=== PATIENT | female | born 2000 | race Hispanic/Latino ===

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

== ENCOUNTER 2020-09-29 15:53 | Emergency (ER) | payer OTHER, SELFPAY ==
[2020-09-29 17:28] LABS: SARS-COV-2 RT PCR NEGATIVE (NEGATIVE)
[2020-09-29] MEDS ORDERED: ONDANSETRON 4 MG (ODT) TAB ONE (17:32)
--- NOTE | 2020-09-29 18:22 | RAD REPORT ---
EXAM DESCRIPTION: RAD - Chest Single View - 09/29/2020 6:17 pm CLINICAL HISTORY: COUGH Chest pain. COMPARISON: ABDOMEN 1 VIEW KUB dated 12/06/2015; CHEST SINGLE VIEW dated 11/30/2015 FINDINGS: Portable technique limits examination quality. Subtle mild interstitial lung opacities bilaterally could indicate a viral bronchitis. The heart is n ormal in size. No displaced fractures.
--- NOTE | 2020-09-29 18:25 | EDPHYS ---
Physician Documentation [facility] Name: Ariadna Castle Age: 20 yrs Sex: Female : 2000 Arrival Date: 09/29/2020 Time: 15:56 Bed 25 Private MD: ED Physician Ashwin Weber HPI: 09/29 17:35 This 20 yrs old Female presents to ER via Ambulatory with complaints of kb Chills, Vomiting. 17:35 The patient or guardian reports cough, flu symptoms, low-grade fever, myalgias. Onset: kb The symptoms/episode began/occurred last night. Severity of symptoms: At their worst the symptoms were moderate, in the emergency department the symptoms are unchanged. Modifying factors: The symptoms are alleviated by nothing, the symptoms are aggravated by nothing. Associated signs and symptoms: Pertinent positives: nausea, rhinorrhea. The patient has not experienced similar symptoms in the past. The patient has not recently seen a physician. Pt reports nausea, bodyaches, chills, sinus congestion, rhinorrhea, fatigue and malaise since last night. Historical: - Allergies: 16:09 No Known Allergies; ll1 - PMHx: 16:09 mono; herniated disc; ll1 - PSHx: 16:09 None; ll1 - Immunization history:: Flu vaccine is not up to date. - Social history:: Smoking status: Patient denies any tobacco usage or history of. ROS: 17:32 Cardiovascular: Negative for chest pain, palpitations, and edema, Back: Negative for kb injury and pain, MS/Extremity: Negative for injury and deformity, Skin: Negative for injury, rash, and discoloration, Neuro: Negative for headache, weakness, numbness, tingling, and seizure. 17:32 Constitutional: Positive for body aches, chills, fatigue, fever, malaise. 17:32 ENT: Positive for rhinorrhea, sinus congestion. 17:32 Respiratory: Positive for cough, Negative for dyspnea on exertion, hemoptysis, orthopnea, pleurisy, shortness of breath, sputum production, wheezing. 17:32 Abdomen/GI: Positive for nausea. Exam: 17:33 Constitutional: This is a well developed, well nourished patient who is awake, alert, kb and in no acute distress. Head/Face: Normocephalic, atraumatic. Chest/axilla: Normal chest wall appearance and motion. Nontender with no deformity. No lesions are appreciated. Cardiovascular: Regular rate and rhythm with a normal S1 and S2. No gallops, murmurs, or rubs. Normal PMI, no JVD. No pulse deficits. Respiratory: Lungs have equal breath sounds bilaterally, clear to auscultation and percussion. No rales, rhonchi or wheezes noted. No increased work of breathing, no retractions or nasal flaring. Abdomen/GI: Soft, non-tender, with normal bowel sounds. No distension or tympany. No guarding or rebound. No evidence of tenderness throughout. Back: No spinal tenderness. No costovertebral tenderness. Full range of motion. Skin: Warm, dry with normal turgor. Normal color with no rashes, no lesions, and no evidence of cellulitis. MS/ Extremity: Pulses equal, no cyanosis. Neurovascular intact. Full, normal range of motion. Neuro: Awake and alert, GCS 15, oriented to person, place, time, and situation. Cranial nerves II-XII grossly intact. Motor strength 5/5 in all extremities. Sensory grossly intact. Cerebellar exam normal. Normal gait. Vital Signs: 16:05 BP 126 / 73; Pulse 72; Resp 16; Temp 98.1; Pulse Ox 100% on R/A; Weight 115.67 kg (M); ll1 Height 5 ft. 4 in. (162.56 cm); Pain 8/10; 18:30 BP 118 / 76; Pulse 68; Resp 18; Pulse Ox 99% on R/A; em 16:05 Body Mass Index 43.77 (115.67 kg, 162.56 cm) ll1 MDM: 17:01 Patient medically screened. kb 17:33 Data reviewed: vital signs, nurses notes. Data interpreted: Pulse oximetry: on room air kb is 100 %. Interpretation: normal. Counseling: I had a detailed discussion with the patient and/or guardian regarding: the historical points, exam findings, and any diagnostic results supporting the discharge/admit diagnosis, lab results, the need for outpatient follow up, a family practitioner, to return to the emergency department if symptoms worsen or persist or if there are any questions or concerns that arise at home. 09/29 17:28 Order name: COVID-19/FLU A+B; Complete Time: 17:31 EDMN 09/29 17:33 Order name: Chest Single View XRAY; Complete Time: 18:23 kb Administered Medications: 17:19 Drug: Zofran (Ondansetron) 4 mg Route: PO; em 18:00 Follow up: Response: No adverse reaction; Marked relief of symptoms; Nausea is decreasedem 18:37 Drug: predniSONE 40 mg Route: PO; em 18:41 Follow up: Response: Medication administered at discharge. em Disposition: 09/30 14:25 Co-signature as Attending Physician, Ashwin Weber MD I agree with the assessment and kdr plan of care. Disposition: 09/29/20 18:24 Discharged to Home. Impression: Acute bronchitis. - Condition is Stable. - Discharge Instructions: Acute Bronchitis, [id number]. - Prescriptions for Prednisone 20 mg Oral Tablet - take 1 tablet by ORAL route once daily for 5 days; 5 tablet. Albuterol Sulfate 90 mcg/actuation - inhale 1-2 puff by INHALATION route every 4-6 hours; 1 Inhaler. - Medication Reconciliation Form, Thank You Letter, Antibiotic Education, Prescription Opioid Use form. - Follow up: Emergency Department; When: As needed; Reason: Worsening of condition. Follow up: Private Physician; When: 2 - 3 days; Reason: Recheck today's complaints, Continuance of care, Re-evaluation by your physician. Signatures: Dispatcher [employer] [facility] Jaymie Cao, DIRECTOR OF PRODUCT MANAGEMENT-C DIRECTOR OF PRODUCT MANAGEMENT-Ashwin Navarrete MD MD [facility] Tello Villanueva RN RN Bee Mirza RN RN ll1 Corrections: (The following items were deleted from the chart) 09/29 16:42 16:10 Influenza Screen (A \T\ B)+BA.LAB.BRZ ordered. [facility] EDMN 16:42 16:10 CORONAVIRUS+MR.LAB.BRZ ordered. [facility] 18:45 18:24 09/29/2020 18:24 Discharged to Home. Impression: Acute bronchitis. Condition is em Stable. Forms are Medication Reconciliation Form, Thank You Letter, Antibiotic Education, Prescription Opioid Use. Follow up: Emergency Department; When: As needed; Reason: Worsening of condition. Follow up: Private Physician; When: 2 - 3 days; Reason: Recheck today's complaints, Continuance of care, Re-evaluation by your physician. kb
--- NOTE | 2020-09-29 18:25 | ER ---
Nurse's Notes [facility] Name: Ariadna Castel Age: 20 yrs Sex: Female : 2000 Arrival Date: 09/29/2020 Time: 15:56 Bed 25 Private MD: Diagnosis: Acute bronchitis Presentation: 09/29 16:05 Chief complaint: Patient states: Cough, CORDON, fatigue, sore throat N/V for 2 days. Fever ll1 99 when walking in today. Coronavirus screen: Client denies travel out of the [place] in the last 14 days. chills, congestion, cough unrelated to allergies, difficulty breathing, fatigue, fever, headache, muscle pain, nausea, shaking with chills, sore throat, vomiting. Client presents with at least one sign or symptom that may indicate coronavirus-19. Standard/surgical mask placed on the client. Ebola Screen: Patient denies travel to an Ebola-affected area in the 21 days before illness onset. Initial Sepsis Screen: Does the patient meet any 2 criteria? No. Patient's initial sepsis screen is negative. Does the patient have a suspected source of infection? Yes: Productive cough/pneumonia. Risk Assessment: Do you want to hurt yourself or someone else? Patient reports no desire to harm self or others. Onset of symptoms was September 28, 2020. 16:05 Method Of Arrival: Ambulatory ll1 16:05 Acuity: MICHAEL 3 ll1 Triage Assessment: 16:10 General: Appears uncomfortable, Behavior is calm, cooperative, appropriate for age. ll1 Pain: Complains of pain in head Pain currently is 8 out of 10 on a pain scale. Pain began 2-3 days ago. EENT: Reports nasal congestion. Neuro: No deficits noted. Cardiovascular: No deficits noted. Respiratory: Reports cough that is. GI:. GI: Abdomen is flat, Bowel sounds present X 4 quads. Abd is soft and non tender X 4 quads. Reports nausea, vomiting. Historical: - Allergies: 16:09 No Known Allergies; ll1 - PMHx: 16:09 mono; herniated disc; ll1 - PSHx: 16:09 None; ll1 - Immunization history:: Flu vaccine is not up to date. - Social history:: Smoking status: Patient denies any tobacco usage or history of. Screenin:07 Abuse screen: Denies threats or abuse. Nutritional screening: No deficits noted. em Tuberculosis screening: No symptoms or risk factors identified. Fall Risk None identified. Assessment: 17:10 General: Appears in no apparent distress. uncomfortable, Behavior is calm, cooperative, em appropriate for age, Reports chills for 12-24 hours, fever for 12-24 hours, feeling ill for 12-24 hours. Pain: Complains of pain in "body aches" Pain does not radiate. Pain currently is 8 out of 10 on a pain scale. Neuro: Level of Consciousness is awake, alert, obeys commands, Oriented to person, place, time, situation, Appropriate for age. Cardiovascular: Capillary refill < 3 seconds Patient's skin is warm and dry. Respiratory: Airway is patent Respiratory effort is even, unlabored, Respiratory pattern is regular, symmetrical. GI: Abdomen is round non-distended, Reports nausea, Patient currently denies diarrhea, vomiting. EENT: Oral mucosa is moist. Derm: Musculoskeletal: Capillary refill < 3 seconds, Range of motion: intact in all extremities. 18:30 Reassessment: Patient appears in no apparent distress at this time. Patient and/or em family updated on plan of care and expected duration. Pain level reassessed. Patient is alert, oriented x 3, equal unlabored respirations, skin warm/dry/pink. Vital Signs: 16:05 BP 126 / 73; Pulse 72; Resp 16; Temp 98.1; Pulse Ox 100% on R/A; Weight 115.67 kg (M); ll1 Height 5 ft. 4 in. (162.56 cm); Pain 8/10; 18:30 BP 118 / 76; Pulse 68; Resp 18; Pulse Ox 99% on R/A; em 16:05 Body Mass Index 43.77 (115.67 kg, 162.56 cm) ll1 ED Course: 15:56 Patient arrived in ED. ds1 16:02 Jaymie Ca[facility] FNP-C [facility]. kb 16:02 Ashwin Weber MD is Attending Physician. kb 16:05 Arm band placed on. ll1 16:09 Triage completed. ll1 17:04 Tello Villanueva, LEDY is Primary Nurse. em 17:07 Patient has correct armband on for positive identification. Bed in low position. Call em light in reach. Side rails up X2. 17:40 Urine collected: clean catch specimen, cloudy, blood tinged. em 18:18 Chest Single View XRAY In Process Unspecified. EDMS 18:41 No provider procedures requiring assistance completed. Patient did not have IV access em during this emergency room visit. Administered Medications: 17:19 Drug: Zofran (Ondansetron) 4 mg Route: PO; em 18:00 Follow up: Response: No adverse reaction; Marked relief of symptoms; Nausea is decreasedem 18:37 Drug: predniSONE 40 mg Route: PO; em 18:41 Follow up: Response: Medication administered at discharge. em Outcome: 18:24 Discharge ordered by MD. kb 18:42 Discharged to home ambulatory. em 18:42 Condition: stable 18:42 Discharge instructions given to patient, Instructed on discharge instructions, follow up and referral plans. medication usage, Demonstrated understanding of instructions, follow-up care, medications, Prescriptions given X 2. 18:45 Patient left the ED. em Signatures: Dispatcher [employer] EDMS Jaymie Cao, GRAVITY METER OBSERVER-C GRAVITY METER OBSERVER-Tello Carreno, RN RN Mariai Avila ds1 Bee Mirza, RN RN ll1
[2020-09-29 18:49] VITALS: TEMP 98.1
[2020-09-29] MEDS ORDERED: predniSONE 20 MG TAB ONE (18:49)
[2020-09-29 18:50] VITALS: BP 118/76; O2SAT 99
== END 2020-09-29 18:45 | disposition home or self-care (01) ==
LOC: ER 15:53
DX: J20.9 Acute bronchitis, unspecified (principal); Z20.822 Contact with and (suspected) exposure to COVID-19
CPT/HCPCS: 0240U; 71045; 99284; J7512

== ENCOUNTER 2021-03-04 06:17 | Emergency (ER) | payer SELFPAY ==
[2021-03-04 07:14] LABS: Absolute Lymphocytes (CBC) 3.7 K/uL (0.7-4.9); Basophils % 0.5 % (0-1.3); Hematocrit 28.5 % (36.0-45.0); Lymphocytes % 29.1 % (15.3-44.8); MPV 8.3 fL (7.6-11.3); RBC Red Blood Cell Count 4.46 M/uL (3.86-4.86)
[2021-03-04 07:32] LABS: ALT/SGPT 15 U/L (12-78); AST/SGOT 13 U/L (15-37); Alkaline Phosphatase 70 U/L (45-117); BUN Blood Urea Nitrogen 12 mg/dL (7-18); Bicarbonate 25 mmol/L (21-32); Bilirubin Direct < 0.1 mg/dL (0-0.2); Bilirubin Total 0.2 mg/dL (0.2-1.0); Glucose Level 108 mg/dL (74-106); Lipase 140 U/L (73-393); Potassium 3.7 mmol/L (3.5-5.1); Protein, Total 7.3 g/dL (6.4-8.2); Sodium Level 138 mmol/L (136-145)
[2021-03-04] MEDS ORDERED: ONDANSETRON 4 MG/2 ML VIAL ONE (07:39)
[2021-03-04] MEDS ORDERED: NA CHLORIDE 0.9% 1,000 ML ONE (07:39)
[2021-03-04] MEDS ORDERED: MORPHINE 4 MG/ML SYR ONE (07:39)
[2021-03-04] MEDS ORDERED: FAMOTIDINE 20 MG/2 ML VIAL IV ONE (07:39)
[2021-03-04 08:11] LABS: Urine Blood Negative (Negative); Urine Glucose Negative (Negative); Urine Protein Negative (Negative)
--- NOTE | 2021-03-04 08:56 | RAD REPORT ---
EXAM DESCRIPTION: CT - Abdomen Pelvis W Contrast - 03/04/2021 8:29 am CLINICAL HISTORY: ABD PAIN COMPARISON: CT ABD PELVIS W CONTRAST dated 12/05/2015; CT ABD PELVIS W CONTRAST dated 10/07/2013 TECHNIQUE: Biphasic, helical CT imaging of the abdomen and pelvis was performed following 100 ml non -ionic IV contrast. No oral contrast administered. All CT scans are performed using dose optimization technique as appropriate and may include automated exposure control or mA/KV adjustment according to patient size. FINDINGS: No suspicious findings in the lung bases. The liver, spleen, and pancreas show no suspicious findings. Gallbladder and biliary tree are also wi thout suspicious finding. Symmetric renal function is seen with no hydronephrosis or suspicious renal mass. No pyelonephritis o r acute parenchymal process. No bladder abnormalities. No adrenal abnormalities. No dilated bowel loops or bowel wall thickening. Appendix is normal. No free air or pneumatosis. Free fluid is present in the cul de sac and adjacent to each ovary. There is heterogeneity of the left ov fabiola, prominent in size. Possible involuting small cyst of the right ovary also present. No uterine ab normality seen. No hernia, mass or bulky lymphadenopathy. No suspicious bony findings. IMPRESSION: No appendicitis or other surgically emergent finding identifiable. Left ovary appears enlarged and heterogeneous. There is free fluid in the cul de sac and bilateral ad nexa. Hemorrhagic or leaking ovarian cyst would be favored. Quantity of free fluid is slightly greate r than expected for physiologic free fluid. No acute GI or process identifiable. Quantity of stool in the colon is not abnormal.
--- NOTE | 2021-03-04 09:55 | EDPHYS ---
Physician Documentation [facility] Name: Ariadna Castle Age: 20 yrs Sex: Female : 2000 Arrival Date: 03/04/2021 Time: 06:28 Bed 14 Private MD: ED Physician Kit Manning HPI: 03/04 07:17 This 20 yrs old Female presents to ER via Ambulatory with complaints of ma2 Abdominal Pain. 07:17 The patient presents with abdominal pain. Onset: The symptoms/episode began/occurred ma2 gradually, 2 day(s) ago. Associated signs and symptoms: Pertinent negatives: anorexia, constipation, diarrhea, fever. Severity of pain: At its worst the pain was mild in the emergency department the pain is unchanged. The patient has not experienced similar symptoms in the past. 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 - Social history:: Smoking status: Patient denies any tobacco usage or history of. Patient/guardian denies using alcohol, street drugs, The patient lives with family. - Family history:: not pertinent. ROS: 07:17 Constitutional: Negative for fever, chills, and weight loss. ma2 07:17 All other systems are negative. Exam: 07:17 Constitutional: This is a well developed, well nourished patient who is awake, alert, ma2 and in no acute distress. Neck: Trachea midline, no thyromegaly or masses palpated, and no cervical lymphadenopathy. Supple, full range of motion without nuchal rigidity, or vertebral point tenderness. No Meningismus. Chest/axilla: Normal chest wall appearance and motion. Nontender with no deformity. No lesions are appreciated. Cardiovascular: Regular rate and rhythm with a normal S1 and S2. No gallops, murmurs, or rubs. Normal PMI, no JVD. No pulse deficits. Respiratory: Lungs have equal breath sounds bilaterally, clear to auscultation and percussion. No rales, rhonchi or wheezes noted. No increased work of breathing, no retractions or nasal flaring. Abdomen/GI: Soft, non-tender, with normal bowel sounds. No distension or tympany. No guarding or rebound. No evidence of tenderness throughout. Skin: Warm, dry with normal turgor. Normal color with no rashes, no lesions, and no evidence of cellulitis. MS/ Extremity: Pulses equal, no cyanosis. Neurovascular intact. Full, normal range of motion. Neuro: Awake and alert, GCS 15, oriented to person, place, time, and situation. Cranial nerves II-XII grossly intact. Motor strength 5/5 in all extremities. Sensory grossly intact. Cerebellar exam normal. Normal gait. Vital Signs: 06:33 BP 129 / 78; Pulse 84; Resp 16; Temp 98.1; Pulse Ox 100% on R/A; Weight 113.4 kg; em Height 5 ft. 5 in. (165.10 cm); Pain 7/10; 07:03 BP 129 / 78; Pulse 76; Resp 17 S; Pulse Ox 100% on R/A; jd3 08:31 BP 125 / 66; Pulse 62; Resp 16 S; Pulse Ox 100% on R/A; jd3 09:36 Pulse 65; Resp 16 S; Pulse Ox 100% on R/A; jd3 06:33 Body Mass Index 41.60 (113.40 kg, 165.10 cm) em MDM: 07:15 Patient medically screened. ma2 07:17 Differential diagnosis: cholecystitis, Cholelithiasis, gastritis, Irritable bowel ma2 syndrome. 09:53 Data reviewed: vital signs, nurses notes. Counseling: I had a detailed discussion with ma2 the patient and/or guardian regarding: the historical points, exam findings, and any diagnostic results supporting the discharge/admit diagnosis, the presence of at least one elevated blood pressure reading (>120/80) during this emergency department visit, the need for outpatient follow up. Response to treatment: the patient's symptoms have markedly improved after treatment. 09:55 ED course: has large ovarian cyst, torsion is unlikely as she never had moderate to ma2 severe pain, she described her pain as constant mild cramping that has resolved at this time . 03/04 06:59 Order name: Basic Metabolic Panel; Complete Time: 08:17 EDMS 03/04 06:59 Order name: Liver (Hepatic) Function; Complete Time: 08:17 EDMS 03/04 06:59 Order name: Lipase; Complete Time: 08:17 EDCT 03/04 06:59 Order name: CBC with Automated Diff EDCT 03/04 07:16 Order name: CT Abd/Pelvis - IV Contrast Only; Complete Time: 09:29 ma2 03/04 08:11 Order name: Urine Dipstick-Ancillary; Complete Time: 08:17 EDCT 03/04 08:13 Order name: Urine --Ancillary (enter results) bd 03/04 06:40 Order name: IV Saline Lock; Complete Time: 07:02 em 03/04 06:40 Order name: Labs collected and sent; Complete Time: 07:01 em 03/04 06:40 Order name: Urine Dipstick-Ancillary (obtain specimen); Complete Time: 08:04 em 03/04 06:40 Order name: Urine Test (obtain specimen); Complete Time: 08:04 em Administered Medications: 07:27 Drug: NS 0.9% 1000 ml Route: IV; Rate: 1 bolus; Site: right antecubital; jd3 07:27 Drug: Zofran (Ondansetron) 4 mg Route: IVP; Site: right antecubital; jd3 07:27 Drug: morphine 4 mg Route: IVP; Site: right antecubital; jd3 07:27 Drug: Pepcid (famotidine) 20 mg Route: IVP; Site: right antecubital; jd3 Disposition: 03/04/21 09:54 Discharged to Home. Impression: Lower abdominal pain, unspecified - ovarian cyst - right side. - Condition is Stable. - Discharge Instructions: Ovarian Cyst, Fkes-no-Cueb. - Prescriptions for Diclofenac Sodium 75 mg Oral Tablet Sustained Release - take 1 tablet by ORAL route 2 times per day; 30 tablet. - Medication Reconciliation Form, Thank You Letter, Antibiotic Education, Prescription Opioid Use form. - Follow up: Private Physician; When: Tomorrow; Reason: If symptoms return, Continuance of care. Follow up: Willie Bartlett MD; When: Tomorrow; Reason: Continuance of care. 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 return to er if you experience pain again Signatures: Dispatcher [employer] Tello Marlow RN RN Tanna Villalpando RN RN ss Gustavo Leon RN RN jd3 Kingston Calderón MD MD ma2 Corrections: (The following items were deleted from the chart) 10:19 09:54 03/04/2021 09:54 Discharged to Home. Impression: Lower abdominal pain, ss unspecified - ovarian cyst - right side. Condition is Stable. Prescriptions for Diclofenac Sodium 75 mg Oral Tablet Sustained Release - take 1 tablet by ORAL route 2 times per day; 30 tablet, Pepcid 20 mg Oral Tablet - take 1 tablet by ORAL route once daily for 10 days; 10 tablet. and Forms are Medication Reconciliation Form, Thank You Letter, Antibiotic Education, Prescription Opioid Use. Follow up: Private Physician; When: Tomorrow; Reason: If symptoms return, Continuance of care. Follow up: Willie Bartlett; When: Tomorrow; Reason: Continuance of care. ma2
--- NOTE | 2021-03-04 09:55 | ER ---
Nurse's Notes [facility] Name: Ariadna Castle Age: 20 yrs Sex: Female : 2000 Arrival Date: 03/04/2021 Time: 06:28 Bed 14 Private MD: Diagnosis: Lower abdominal pain, unspecified-ovarian cyst - right side Presentation: 03/04 06:33 Chief complaint: Patient states: lower abdominal/pelvic pain since Friday that em radiates into back, denies problems urinating, N/V/D, reports constipation, last BM yesterday. Coronavirus screen: Client denies travel out of the [place] in the last 14 days. Ebola Screen: Patient negative for fever greater than or equal to 101.5 degrees Fahrenheit, and additional compatible Ebola Virus Disease symptoms Patient denies exposure to infectious person. Patient denies travel to an Ebola-affected area in the 21 days before illness onset. No symptoms or risks identified at this time. Initial Sepsis Screen: Does the patient meet any 2 criteria? No. Patient's initial sepsis screen is negative. Does the patient have a suspected source of infection? No. Patient's initial sepsis screen is negative. Risk Assessment: Do you want to hurt yourself or someone else? Patient reports no desire to harm self or others. Onset of symptoms was March 04, 2021. 06:33 Method Of Arrival: Ambulatory em 06:33 Acuity: MICHAEL 3 em Triage Assessment: 06:39 General: Appears in no apparent distress. Behavior is calm, cooperative. Pain: Denies ak2 pain. Cardiovascular: No deficits noted. Respiratory: No deficits noted. GI: No deficits noted. 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 - Social history:: Smoking status: Patient denies any tobacco usage or history of. Patient/guardian denies using alcohol, street drugs, The patient lives with family. - Family history:: not pertinent. Screenin:39 Abuse screen: Denies threats or abuse. Denies injuries from another. Nutritional ak2 screening: No deficits noted. Tuberculosis screening: No symptoms or risk factors identified. Fall Risk None identified. Assessment: 06:40 GI: Bowel sounds present X 4 quads. Abd is soft X 4 quads. ak2 07:02 General: Appears in no apparent distress. comfortable, Behavior is calm, cooperative, jd3 appropriate for age. Pain: Complains of pain in abdomen Quality of pain is described as crampy. Neuro: Level of Consciousness is awake, alert, obeys commands, Oriented to person, place, time, situation. Cardiovascular: Capillary refill < 3 seconds Patient's skin is warm and dry. Respiratory: Airway is patent Respiratory effort is even, unlabored, Respiratory pattern is regular, symmetrical, Denies cough, shortness of breath. GI: Abdomen is non-distended, Abd is soft and non tender X 4 quads. Patient currently denies nausea, vomiting. : No signs and/or symptoms were reported regarding the genitourinary system. EENT: No signs and/or symptoms were reported regarding the EENT system. Derm: Skin is intact, Skin is dry, Skin is normal, Skin temperature is warm. Musculoskeletal: Circulation, motion, and sensation intact. Range of motion: intact in all extremities. 08:31 Reassessment: Patient appears in no apparent distress at this time. No changes from jd3 previously documented assessment. Patient and/or family updated on plan of care and expected duration. Pain level reassessed. Patient is alert, oriented x 3, equal unlabored respirations, skin warm/dry/pink. 09:36 Reassessment: Patient appears in no apparent distress at this time. Patient and/or d3 family updated on plan of care and expected duration. Pain level reassessed. Patient is alert, oriented x 3, equal unlabored respirations, skin warm/dry/pink. provider at bedside. Vital Signs: 06:33 BP 129 / 78; Pulse 84; Resp 16; Temp 98.1; Pulse Ox 100% on R/A; Weight 113.4 kg; em Height 5 ft. 5 in. (165.10 cm); Pain 7/10; 07:03 BP 129 / 78; Pulse 76; Resp 17 S; Pulse Ox 100% on R/A; jd3 08:31 BP 125 / 66; Pulse 62; Resp 16 S; Pulse Ox 100% on R/A; jd3 09:36 Pulse 65; Resp 16 S; Pulse Ox 100% on R/A; jd3 06:33 Body Mass Index 41.60 (113.40 kg, 165.10 cm) em ED Course: 06:28 Patient arrived in ED. am4 06:31 Sylvain Diaz is Primary Nurse. ak2 06:33 Kit Manning MD is Attending Physician. mh7 06:36 Triage completed. em 06:36 Arm band placed on. em 06:39 Patient has correct armband on for positive identification. ak2 06:39 No provider procedures requiring assistance completed. Inserted saline lock: 20 gauge ak2 in right forearm, using aseptic technique. 07:01 Gustavo Leon, RN is Primary Nurse. jd3 07:13 ED physician to see patient. jd3 07:56 Radiology exam delayed due to test not completed at this time. bq 08:10 Urine collected: clean catch specimen, clear. dh3 08:29 CT Abd/Pelvis - IV Contrast Only In Process Unspecified. EDMS 09:52 Primary Nurse role handed off by Gustavo Leon, RN vg1 09:52 Shilpa Hodges, LEDY is Primary Nurse. vg1 09:54 Willie Bartlett MD is Referral Physician. ma2 10:18 IV discontinued, intact, bleeding controlled, No redness/swelling at site. Pressure ss dressing applied. Administered Medications: 07:27 Drug: NS 0.9% 1000 ml Route: IV; Rate: 1 bolus; Site: right antecubital; jd3 07:27 Drug: Zofran (Ondansetron) 4 mg Route: IVP; Site: right antecubital; jd3 07:27 Drug: morphine 4 mg Route: IVP; Site: right antecubital; jd3 07:27 Drug: Pepcid (famotidine) 20 mg Route: IVP; Site: right antecubital; jd3 Outcome: 09:54 Discharge ordered by . ma2 10:18 Discharged to home ambulatory. ss 10:18 Condition: good 10:18 Discharge instructions given to patient, Instructed on discharge instructions, follow up and referral plans. medication usage, Demonstrated understanding of instructions, follow-up care, medications, Prescriptions given X 1. 10:19 Patient left the ED. ss Signatures: Dispatcher [employer] EDMD Manisha Wood Edgar, RN RN em Jose, Tanna, RN RN Fabio, Sravanthi 3 Carolyn, LEDY Chen RN jd3 Stephane, MD LETICIA Onofre ma2 Shilpa Hodges RN RN vg1 Nigel, MD LETICIA Pantoja mh7 Key Quiñones [facility] Sylvain Diaz [facility]
[2021-03-04 10:28] VITALS: TEMP 98.1; O2SAT 100
[2021-03-04 10:31] VITALS: BP 125/66
[2021-03-04 12:12] LABS: White Blood Cell Scan OK (OK)
[2021-03-04 12:14] LABS: Platelet Estimate ADEQ
[2021-03-04 12:15] LABS: Anisocytosis 2+; Hypochromasia 2+
[2021-03-04 12:16] LABS: Elliptocytes 1+
[2021-03-04 12:48] LABS: Blood Morphology Comment NOTED (NOT SEEN)
== END 2021-03-04 10:19 | disposition home or self-care (01) ==
LOC: ER 06:17
DX: N83.201 Unspecified ovarian cyst, right side (principal)
CPT/HCPCS: 36415; 74177; 80048; 80076; 81003; 81025; 83690; 85025; J2405; J7030; Q9967

== ENCOUNTER 2021-09-10 17:36 | Emergency (ER) | payer SELFPAY ==
[2021-09-10] MEDS ORDERED: ACETAMINOPHEN 500 MG TAB ONE (22:12)
[2021-09-10] MEDS ORDERED: ONDANSETRON 4 MG (ODT) TAB ONE (22:12)
[2021-09-11 00:05] LABS: Urine Blood Negative (Negative); Urine Glucose Negative (Negative); Urine Protein Negative (Negative); Urine Specific Gravity 1.025 (1.005-1.030); Urine pH 5.5 (5.0-7.0)
[2021-09-11 00:23] LABS: Urine Specific Gravity/Preg 1.025 (1.005-1.030)
[2021-09-11 00:43] LABS: SARS-COV-2 RT PCR NEGATIVE (NEGATIVE)
[2021-09-11 00:53] LABS: Urine Bacteria >50 /HPF (<20); Urine Mucus HEAVY /HPF (NONE SEEN); Urine RBC <5 /HPF (NONE SEEN)
--- NOTE | 2021-09-11 01:02 | EDPHYS ---
Physician Documentation [facility] Name: Ariadna Castle Age: 21 yrs Sex: Female : 2000 Arrival Date: 09/10/2021 Time: 18:01 Bed 11 Private MD: ED Physician Hubert Quiñones HPI: 09/10 22:00 This 21 yrs old Female presents to ER via Wheelchair with complaints of cp Headache and Nausea/Vomiting. 22:00 The patient presents to the emergency department with nausea, that is moderate, cp vomiting, that is intermittent. Onset: The symptoms/episode began/occurred this morning. 22:00 Associated signs and symptoms: Pertinent positives: nausea, vomiting, chills, headache, cp Pertinent negatives: fever, cough. 22:00 Severity of symptoms: in the emergency department the symptoms are unchanged despite cp home interventions. Historical: - Allergies: 19:52 No Known Allergies; ll1 - PMHx: 19:52 Herniated disc; mono; ll1 - PSHx: 19:52 None; ll1 - Immunization history:: Client reports receiving the 2nd dose of the Covid vaccine. - Social history:: Smoking status: Patient denies any tobacco usage or history of. ROS: 22:05 Constitutional: Negative for fever, poor PO intake. cp 22:05 Eyes: Negative for injury, pain, redness, and discharge. cp 22:05 ENT: Negative for drainage from ear(s), ear pain, sore throat, difficulty swallowing, difficulty handling secretions. 22:05 Cardiovascular: Negative for chest pain. 22:05 Respiratory: Negative for cough, shortness of breath, wheezing. 22:05 Abdomen/GI: Positive for nausea, vomiting, Negative for diarrhea, constipation. 22:05 Neuro: Positive for headache, Negative for altered mental status, weakness. 22:05 All other systems are negative. Exam: 22:15 Constitutional: The patient appears in no acute distress, alert, awake, non-toxic, well cp developed, well nourished, obese. 22:15 Head/Face: Normocephalic, atraumatic. cp 22:15 Eyes: Periorbital structures: appear normal, Conjunctiva: normal, no exudate, no injection, Sclera: no appreciated abnormality, Lids and lashes: appear normal, bilaterally. 22:15 ENT: External ear(s): are unremarkable, Nose: is normal, Mouth: Lips: moist, Oral mucosa: moist, Posterior pharynx: Airway: no evidence of obstruction, patent. 22:15 Neck: ROM/movement: is normal, is supple, without pain, no range of motions limitations, no meningismus. 22:15 Chest/axilla: Inspection: normal. 22:15 Cardiovascular: Rate: normal, Rhythm: regular. 22:15 Respiratory: the patient does not display signs of respiratory distress, Respirations: normal, no use of accessory muscles, no retractions, labored breathing, is not present, Breath sounds: are clear throughout, no decreased breath sounds, no stridor, no wheezing. 22:15 Abdomen/GI: Inspection: abdomen appears normal, Bowel sounds: active, all quadrants, Palpation: soft, in all quadrants, mild abdominal tenderness, in the left lower quadrant, rebound tenderness, is not appreciated, involuntary guarding, is not appreciated. 22:15 Back: CVA tenderness, is absent. 22:15 Neuro: Orientation: to person, place \\T\\ time. Mentation: is normal, Motor: moves all fours, strength is normal, Sensation: is normal. Vital Signs: 19:53 Pulse 92; Resp 18; Temp 98.9; Pulse Ox 100% ; Weight 116.12 kg; Height 5 ft. 3 in. ll1 (160.02 cm); Pain 6/10; 19:55 BP 127 / 59; ll1 22:32 BP 108 / 63; Pulse 96; Resp 18; Temp 99.2(O); Pulse Ox 100% on R/A; oe 09/11 01:39 BP 115 / 55; Pulse 72; Resp 20; Pulse Ox 98% ; bb 09/10 19:53 Body Mass Index 45.35 (116.12 kg, 160.02 cm) ll1 MDM: 09/10 21:46 Patient medically screened. cp 09/11 00:00 Differential diagnosis: gastritis, viral gastroenteritis, gastroenteritis, UTI, cp influenza, COVID-19. 01:00 Data reviewed: vital signs, nurses notes, lab test result(s), and as a result, I will cp discharge patient. 01:00 Counseling: I had a detailed discussion with the patient and/or guardian regarding: the cp historical points, exam findings, and any diagnostic results supporting the discharge/admit diagnosis, lab results, to return to the emergency department if symptoms worsen or persist or if there are any questions or concerns that arise at home. 09/10 21:56 Order name: COVID-19/FLU A+B (Document "Date of Onset" if Symptomatic); Complete Time: cp 00:43 09/11 00:05 Order name: Urine Dipstick-Ancillary; Complete Time: 00:43 EDMS 09/11 00:45 Interpretation: Reviewed. cp 09/11 00:06 Order name: Urine --Ancillary (enter results); Complete Time: 00:43 mw2 09/11 00:06 Order name: Urine Dipstick-Ancillary; Complete Time: 00:43 EDMS 09/11 00:08 Order name: Urine Microscopic Only; Complete Time: 00:53 mw2 09/11 00:53 Interpretation: Abnormal: UBACT >50. 09/11 00:53 Order name: Urine Culture EDWI 09/10 21:56 Order name: Urine Test (obtain specimen); Complete Time: 00:05 cp 09/10 21:56 Order name: Urine Dipstick-Ancillary (obtain specimen); Complete Time: 00:05 cp Administered Medications: 09/10 22:43 Drug: Zofran (Ondansetron) 4 mg Route: PO; 09/11 01:36 Follow up: Response: No adverse reaction 09/10 22:44 Drug: Tylenol 1000 mg Route: PO; 09/11 01:36 Follow up: Response: No adverse reaction 01:36 Drug: Rocephin (cefTRIAXone) 1 grams Route: IM; Site: right gluteus; 01:36 Follow up: Response: Medication administered at discharge. Disposition: 03:04 Co-signature as Attending Physician, Hubert Quiñones MD. pkl Disposition Summary: 09/11/21 01:01 Discharge Ordered Location: Home cp Problem: new cp Symptoms: have improved cp Condition: Stable cp Diagnosis - UTI/ Urinary tract infection, site not specified cp Followup: cp - With: Private Physician - When: 2 - 3 days - Reason: Worsening of condition Discharge Instructions: - Discharge Summary Sheet cp - Urinary Tract Infection, Adult cp - Form - Excuse from Work, School, or Physical Activity cp Forms: - Medication Reconciliation Form cp - Thank You Letter cp - Antibiotic Education cp - Prescription Opioid Use cp Prescriptions: - Ibuprofen 800 mg Oral Tablet - take 1 tablet by ORAL route every 8 hours As needed take with food; 30 tablet; cp Refills: 0, Product Selection Permitted - Zofran 4 mg Oral Tablet - take 1 tablet by ORAL route every 12 hours As needed; 20 tablet; Refills: 0, cp Product Selection Permitted - Bactrim DS 800-160 mg Oral Tablet - take 1 tablet by ORAL route every 12 hours for 7 days; 14 tablet; Refills: 0, cp Product Selection Permitted Signatures: Dispatcher [employer] EDMS Hubert Quiñones MD MD pkl Ballard, Brenda, RN RN bb Rayshawn Montalvo PA PA cp Bee Mirza RN RN ll1 Corrections: (The following items were deleted from the chart) 09/10 22:46 22:45 This 21 yrs old Female presents to ER via Wheelchair with complaints of cp Headache. cp 09/11 17:26 02:51 Data reviewed: vital signs, nurses notes, lab test result(s), and as a result, I cp will discharge patient, cp
--- NOTE | 2021-09-11 01:02 | ER ---
Nurse's Notes [facility] Name: Ariadna Castle Age: 21 yrs Sex: Female : 2000 Arrival Date: 09/10/2021 Time: 18:01 Bed 11 Private MD: Diagnosis: UTI/ Urinary tract infection, site not specified Presentation: 09/10 19:53 Chief complaint: Patient states: [place]ORD[place], N/V, weakness, chills for 1 day. No known fever. ll1 Coronavirus screen: Vaccine status: Patient reports receiving the 2nd dose of the covid vaccine. Client denies travel out of the [place] in the last 14 days. fatigue, headache, muscle pain, nausea, vomiting. Client presents with at least one sign or symptom that may indicate coronavirus-19. Standard/surgical mask placed on the client. Ebola Screen: Patient denies travel to an Ebola-affected area in the 21 days before illness onset. Initial Sepsis Screen: Does the patient meet any 2 criteria? HR > 90 bpm. No. Patient's initial sepsis screen is negative. Does the patient have a suspected source of infection? Yes: Other: N/V. CORDON. Risk Assessment: Do you want to hurt yourself or someone else? Patient reports no desire to harm self or others. Onset of symptoms was September 10, 2021. 19:53 Method Of Arrival: Wheelchair ll1 19:53 Acuity: MICHAEL 4 ll1 Historical: - Allergies: 19:52 No Known Allergies; ll1 - PMHx: 19:52 Herniated disc; mono; ll1 - PSHx: 19:52 None; ll1 - Immunization history:: Client reports receiving the 2nd dose of the Covid vaccine. - Social history:: Smoking status: Patient denies any tobacco usage or history of. Screenin:00 Abuse screen: Denies threats or abuse. Nutritional screening: No deficits noted. bb Tuberculosis screening: No symptoms or risk factors identified. Fall Risk None identified. Assessment: 22:00 General: Appears in no apparent distress. uncomfortable, Behavior is calm, cooperative. bb Pain: Complains of pain in pelvis. Neuro: Level of Consciousness is awake, alert, obeys commands, Oriented to person, place, time, situation. Cardiovascular: Capillary refill < 3 seconds Patient's skin is warm and dry. Respiratory: Respiratory effort is even, unlabored, Respiratory pattern is regular. GI: Abdomen is round. Derm: Skin is pink, warm \T\ dry. Musculoskeletal: Circulation, motion, and sensation intact. 09/11 00:00 Reassessment: Patient is alert, oriented x 3, equal unlabored respirations, skin bb warm/dry/pink. pt awaiting diagnostic results. 01:38 Reassessment: Patient is alert, oriented x 3, equal unlabored respirations, skin bb warm/dry/pink. pt verbalized understanding of and agrees to plan of care discharge instructions given pt ambulated with steady gait to exit accompanied by friend. Vital Signs: 09/10 19:53 Pulse 92; Resp 18; Temp 98.9; Pulse Ox 100% ; Weight 116.12 kg; Height 5 ft. 3 in. ll1 (160.02 cm); Pain 6/10; 19:55 BP 127 / 59; ll1 22:32 BP 108 / 63; Pulse 96; Resp 18; Temp 99.2(O); Pulse Ox 100% on R/A; oe 09/11 01:39 BP 115 / 55; Pulse 72; Resp 20; Pulse Ox 98% ; bb 09/10 19:53 Body Mass Index 45.35 (116.12 kg, 160.02 cm) ll1 ED Course: 09/10 18:01 Patient arrived in ED. ds1 19:55 Triage completed. ll1 19:55 Arm band placed on. ll1 21:43 Rayshawn Montalvo PA is PHCP. cp 21:43 Hubert Quiñones MD is Attending Physician. cp 22:00 Patient has correct armband on for positive identification. Adult w/ patient. bb 23:56 COVID swab sent to lab. mw2 09/11 01:36 Meggan Tinajero, LEDY is Primary Nurse. bb 01:39 No provider procedures requiring assistance completed. Patient did not have IV access bb during this emergency room visit. Administered Medications: 09/10 22:43 Drug: Zofran (Ondansetron) 4 mg Route: PO; bb 09/11 01:36 Follow up: Response: No adverse reaction bb 09/10 22:44 Drug: Tylenol 1000 mg Route: PO; bb 09/11 01:36 Follow up: Response: No adverse reaction bb 01:36 Drug: Rocephin (cefTRIAXone) 1 grams Route: IM; Site: right gluteus; bb 01:36 Follow up: Response: Medication administered at discharge. bb Outcome: 01:01 Discharge ordered by . cp 01:39 Discharged to home ambulatory. bb 01:39 Condition: stable 01:39 Discharge instructions given to patient, Instructed on discharge instructions, follow up and referral plans. medication usage, Demonstrated understanding of instructions, follow-up care, medications, Prescriptions given X 3. 01:41 Patient left the ED. bb Signatures: Mariia Hong ds1 Meggan Tinajero, RN RN bb Rayshawn Montalvo PA PA Emory Donnelly MyKena mw2 Bee Mirza, RN RN ll1
[2021-09-11] MEDS ORDERED: CEFTRIAXONE 1000 MG/VIAL ONE (01:23)
[2021-09-11] MEDS ORDERED: LIDOCAINE 1% MPF 2 ML AMPULE ONE (01:23)
[2021-09-11 01:49] VITALS: TEMP 99.2
[2021-09-11 01:50] VITALS: BP 115/55; O2SAT 98
== END 2021-09-11 01:41 | disposition home or self-care (01) ==
LOC: ER 17:36
DX: N39.0 Urinary tract infection, site not specified (principal); Z20.822 Contact with and (suspected) exposure to COVID-19
CPT/HCPCS: 0240U; 81003; 81015; 81025; 87086; 87088; 96372; 99283

== ENCOUNTER 2024-01-24 21:35 | Emergency (ER) | payer SELFPAY ==
--- OUTSIDE RECORDS SUMMARY | 2024-01-24 21:38 | XMS REPORT | Continuity of Care Document ---
Author Name Unknown Address [address] [facility] [address] [place], [place] [id number] [place] [address] thconnect Address [address] [facility] 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 Name Role Phone Paula Her Primary Care Physician ROMEL ROBERSON Attending Clinician Unavailable MARGARITA, THA Attending Clinician Unavailable MYA JAVIER Attending Clinician Unavailable SASKIA HOROWITZ Attending Clinician Unavailable DARREN ERICKSNO Attending Clinician Unavailable LAB90 Attending Clinician Unavailable Payers Payer Name Policy Type Policy Number Effective Date Expirati on Date Source AETNA MP [facility] 5 O AEROPLANE PILOT 94 ON 9 [id number] 2023 00:00:00 Social History Social Habit Start Date Stop Date Quantity Comments Source Sexual orientation Shelby Julien - External Alcoholic beverage intake 2023-11-03 00:00:00 2023-11-03 00:00:00 Current drinker of alcohol (finding) Micheline Julien - External Alcohol intake 2023-11-03 00:00:00 2023-11-03 00:00:00 Current drinker of alcohol (finding) Micheline Julien - External History of Social function 2023-11-03 00:00:00 2023-11-03 00:00:00 Micheline Julien - External Sex assigned at 2000 00:00:00 2000 00:00:00 Micheline Julien - External Smoking Status Start Date Stop Date Source Never smoked tobacco Micheline Seybold - External Medications Ordered Medication Name Filled Medication Name Start Date Stop Date Current Medication? Ordering Clinician Indication Dosage Frequency Signature (SIG) Comments Components Source Amoxicillin -Pot Clavulanate 875-125 MG oral Tablet 12-24 00:00: 00 Yes [id number] 1{tbl} Take 1 tablet by mouth every 12 hours for 10 days.. Micheline Julien - Externa l Pseudoeph-B romphen-DM 30-2-10 MG/5ML oral Syrup 12-24 00:00: 00 Yes [id number] 10mL Q.25D Take 10 mL by mouth 4 times daily as needed. Micheline Julien - Externa l TAKE ONE (1) TABLET(S) BY MOUTH EVERY EIGHT HOURS WITH FOOD NEEDED FOR PAIN. 06-11 00:00: 00 No Vital Signs Vital Name Observation Time Observation Value Comments S ource Diastolic blood pressure 2023-11-03 19:33:00 70 mm[Hg] Micheline Godwin ld - External Heart rate 2023-11-03 19:33:00 71 /min Kelse y Seybold - External Body temperature 2023-11-03 19:33:00 36.5 Dang Michelinekameron Ramonold - External Respiratory rate 2023-11-03 19:33:00 18 /min Micheline Julien - External Body height 2023-11-03 19:33:00 162.6 cm Beatriz joseph Seybold - External Body weight 2023-11-03 19:33:00 124.739 kg Beatriz ey Seybold - External BMI 2023-11-03 19:33:00 47.20 kg/m2 Beatriz ey Seybold - External Systolic blood pressure 2023-11-03 19:33:00 132 mm[Hg] Micheline Godwin ld - External Plan of Care Planned Activity Planned Date Details Comments Source Goal Plan of Care Note [code = 13497-9] Goal Plan of Care Note [code = 00321-2] Goal Plan of Care Note [code = 33395-6] Goal Plan of Care Note [code = 62077-1] Encounters Start Date/Time End Date/Time Encounter Type Admission Type Attending Clinicians Care Facility Care Department Encounter ID Source 2023-12-30 16:00:00 2023-12-30 16:00:00 Outpatient [facility]HSE[facility] [id number] [facility] 2023-12-25 16:00:00 2023-12-25 16:00:00 Outpatient ROMEL ROBERSON MICHELINE MICHELINE [id number] [facility] 2023-12-08 00:00:00 2023-12-08 00:00:00 Outpatient CONFERENCE, [facility] MICHELINE MICHELINE [id number] [facility] 2023-12-04 15:30:00 2023-12-04 15:30:00 Outpatient JAVIERMAY [id number] [facility] 2023-11-28 00:00:00 2023-11-28 00:00:00 Outpatient SASKIA HOROWITZ [id number] [facility] 2023-11-27 08:10:00 2023-11-27 08:10:00 Outpatient CONFERENCE, [facility] MICHELINE BRASHER [id number] [facility] 2023-11-27 00:00:00 2023-11-27 00:00:00 Outpatient CONFERENCE, [facility] MICHELINE MICHELINE [id number] [facility] 2023-11-27 00:00:00 2023-11-27 00:00:00 Outpatient DARREN ERICKSON [id number] [facility] 2023-11-26 10:45:00 2023-11-26 10:45:00 Outpatient MICHELINE BRASHER [id number] [facility] 2023-11-24 12:20:00 2023-11-24 12:20:00 Outpatient LAB90 MICHELINE BRASHER [id number] [facility] 2023-11-05 11:15:00 2023-11-05 11:15:00 Outpatient CONFERENCE, [facility] MICHELINE MICHELINE [id number] [facility] 2023-11-03 13:45:00 2023-11-03 13:45:00 Outpatient SASKIA HOROWITZ [id number] [facility] 2022-10-26 09:38:31 2022-10-26 09:38:31 Outpatient [facility] [id number] Guillermo Tan 2022-10-17 15:11:27 2022-10-17 15:11:27 Outpatient [facility] [id number] Guillermo Tan 2022-10-16 15:35:33 2022-10-16 15:35:33 Outpatient [facility] 020 Guillermo Tan 2022-07-22 11:28:20 2022-07-22 11:28:20 Outpatient [facility] [id number] Guillermo Tan 2022-06-11 00:00:00 2022-06-11 00:00:00 Outpatient Visit [id number] Results Test Description Test Time Test Comments Results Resul t Comments Source BREAST ULTRASOUND RIGHT 2023-02-11 13:19:42 Nam e: Ariadna : 2000 Sex: F - BREAST ULTRASOUND RIGHTCOMPLETE ULTRASOUND OF RIGHT BREAST AND AXILLA: 02/11/2023LINICAL: Followup to previous exam right breast. Comparison is made to exam dated 11/26/2022 ultrasound - [facility]-. Color flow and real-time ultrasound of the right breast four quadrants, retroareolar, and axilla regions and clinical breast exam performed. Corcoran scale images of the real-time examination were reviewed. No significant abnormalities were seen sonographically in the right breast or the right axilla. Clinical breast exam unremarkable. IMPRESSION: NEGATIVE There is no sonographic evidence of malignancy. Follow-up with ACR/ACS guidelines. Maryann Livingston M.D. dm/:02/11/2023 13:19:42 Entry: lt - 02/12/2023 08:25:31Imaging Technologist: Natasha WADE, [facility]-FWletter sent: BIRADS 1-2 Normal Ultrasound BI-RADS: 1 Negative BREAST ULTRASOUND BILATERAL 2022-11-27 07:52:46 Jeremias e: Ariadna : 2000 Sex: F - BREAST ULTRASOUND BILATERALCOMPLETE ULTRASOUND OF BOTH BREASTS AND AXILLA: 11/26/2022LINICAL: Right breast mass,2:00,x 1 year. Family history of breast cancer. No prior exams were available for comparison. Color flow and real-time ultrasound of both breasts four quadrants, retroareolar, and axilla regions and clinical breast exam performed. There is a benign 2.5 cm fluid collection in the right breast at 3 o'clock 2 cm from the nipple. There are other smaller fluid collections below the right nipple. They have the appearance of purulent fluid collections however there is no pain or erythema. The patient has nipple piercings. No significant abnormalities were seen sonographically in the left breast or either axilla. IMPRESSION: BENIGN There is no sonographic evidence of malignancy. The 2.5 cm fluid collection in the right breast is benign. A follow-up target ultrasound in 2 months is recommended. (01/26/2023) Maryann Livingston M.D. dm/:11/27/2022 07:52:46 Assistant Plant Manager: Kennedi WADE, [facility]-FWUltrasound BI-RADS: 2 Benign VAGINAL PATHOGENS DNA [id number] 13:59:21* Test Item Value Reference Range Interpretation Comme nts PARIS SPECIES (test code = ) NEGATIVE NEGATIVE G. VAGINALIS (test code = ) NEGATIVE NEGATIVE T. VAGINALIS (test code = ) NEGATIVE NEGATIVE Note: The [facility] irm VPIII Microbial Identification Testis a DNA probe test intended for use in the detectionand identification of Paris species, Gardnerellavaginalis and Trichomonas vaginalis nucleic acid. [facility] has important pathology staff changes effective 11/13/2022. New pathology staff will provide uninterrupted, excellent patient care and clinical consultation. See URL: [email or web address], [email or web address]..[email or web address] am. UNLESS OTHERWISE INDICATED, ALL TESTING PERFORMED AT [facility] [address] [place] [address] CLIA: [id number], CAP: [id number] Notes Date/Time Note Provider Source 2023-11-03 13:28:11 [id number] T13:28:11 Chief ComplaintPatient presents withBreast ProblemCarol [place] [address]-5Ndsif [id number]:28:28Nurse [id number]. [id number] for patient [id number] NoteLNNARRATIVEFormatted C-CDA narrative textRiver Woods Urgent Care Center– [place] [facility].[id number] 2.3.15|[id number]. [id number] [facility]"
--- NOTE | 2024-01-24 22:06 | ER ---
Nurse's Notes [facility] Name: Ariadna Castle Age: 23 yrs Sex: Female : 2000 Arrival Date: 01/24/2024 Time: 21:35 Bed 7 Private MD: Diagnosis: Radiculopathy, lumbar region Presentation: 01/23 21:48 Chief complaint: Patient states: left sided lower back/leg pain for the last 2 weeks as6 with worsening pain that started yesterday. Coronavirus screen: At this time, the client does not indicate any symptoms associated with coronavirus-19. Ebola Screen: No symptoms or risks identified at this time. Initial Sepsis Screen: Does the patient meet any 2 criteria? No. Patient's initial sepsis screen is negative. Does the patient have a suspected source of infection? No. Patient's initial sepsis screen is negative. Risk Assessment: Do you want to hurt yourself or someone else? Patient reports no desire to harm self or others. Onset of symptoms was January 10, 2024. 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 - Infectious Disease History:: Denies. - Social history:: Smoking status: Patient denies any tobacco usage or history of. Screenin:51 [facility] ED Fall Risk Assessment (Adult) History of falling in the last 3 months, jb4 including since admission No falls in past 3 months (0 pts) Confusion or Disorientation No (0 pts) Intoxicated or Sedated No (0 pts) Impaired Gait No (0 pts) Mobility Assist Device Used No (0 pt) Altered Elimination No (0 pt) Score/Fall Risk Level 0 - 2 = Low Risk Oriented to surroundings, Maintained a safe environment. Abuse screen: Denies threats or abuse. Nutritional screening: No deficits noted. Tuberculosis screening: No symptoms or risk factors identified. Assessment: 22:00 General: Appears in no apparent distress. comfortable, Behavior is calm, cooperative, jb4 appropriate for age. Pain: Complains of pain in left low back Pain radiates to left leg Pain currently is 8 out of 10 on a pain scale. Neuro: Level of Consciousness is awake, alert, obeys commands, Oriented to person, place, time, situation. Cardiovascular: Patient's skin is warm and dry. Respiratory: Airway is patent Respiratory effort is even, unlabored, Respiratory pattern is regular, symmetrical. GI: No signs and/or symptoms were reported involving the gastrointestinal system. : No signs and/or symptoms were reported regarding the genitourinary system. EENT: No signs and/or symptoms were reported regarding the EENT system. Derm: Skin is intact, Skin is pink, warm \T\ dry. Musculoskeletal: Circulation, motion, and sensation intact. Range of motion: intact in all extremities. Vital Signs: 21:47 BP 130 / 69; Pulse 86; Resp 18 S; Temp 97.8(TE); Pulse Ox 100% on R/A; Weight 122.47 kg as6 (R); Height 5 ft. 3 in. (R); Pain 8/10; 21:47 Body Mass Index 47.83 (122.47 kg, 160.02 cm) as6 21:47 Pain Scale: Adult as6 ED Course: 21:39 Patient arrived in ED. gm2 21:45 Oscar Pearson MD is Attending Physician. rt 21:47 Arm band placed on. as6 21:49 Triage completed. as6 22:51 Patient has correct armband on for positive identification. Allergy band placed. Bed in jb4 low position. Call light in reach. Side rails up X 1. Provided Education on: discharge instructions.. 22:51 No provider procedures requiring assistance completed. Patient did not have IV access jb4 during this emergency room visit. Administered Medications: 22:34 Drug: Ketorolac IM 15 mg IM once Route: IM; Site: right deltoid; jb4 22:50 Follow up: Response: No adverse reaction; Marked relief of symptoms jb4 22:34 Drug: Cyclobenzaprine PO 10 mg PO once Route: PO; jb4 22:50 Follow up: Response: No adverse reaction; Marked relief of symptoms jb4 22:34 Drug: Gabapentin PO 300 mg PO once Route: PO; jb4 22:50 Follow up: Response: No adverse reaction; Marked relief of symptoms jb4 22:50 Drug: Dexamethasone IM 10 mg IM once Route: IM; Site: left deltoid; jb4 22:51 Follow up: Response: No adverse reaction; Marked relief of symptoms jb4 Medication: 22:55 VIS not applicable for this client. jb4 Outcome: 22:06 Discharge ordered by . rt 22:51 Discharged to home ambulatory, jb4 22:51 Condition: stable 22:51 Discharge instructions given to patient, Instructed on discharge instructions, follow up and referral plans. medication usage, Demonstrated understanding of instructions, follow-up care, medications, Prescriptions given X 3, 22:52 Patient left the ED. jb4 Signatures: Zac Cody RN RN jb4 Bryan Oconnell RN RN as6 Oscar Pearson MD MD rt Trena Weston 2
--- NOTE | 2024-01-24 22:06 | EDPHYS ---
Physician Documentation [facility] Name: Ariadna Castle Age: 23 yrs Sex: Female : 2000 Arrival Date: 01/24/2024 Time: 21:35 Bed 7 Private MD: ED Physician Oscar Pearson HPI: 01/23 22:47 This 23 yrs old Female presents to ER via Wheelchair with complaints of Low rt Back Pain, Leg Pain. 22:47 Patient presents to the ED with a left lower back pain radiating posteriorly. Does have rt a history of herniated disc. Denies urinary symptoms, numbness, tingling. Denies other acute complaints, symptoms are moderate severity, no other aggravating elevating factors.. 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 - Infectious Disease History:: Denies. - Social history:: Smoking status: Patient denies any tobacco usage or history of. ROS: 22:47 Constitutional: Negative for fever, chills, and weight loss, Cardiovascular: Negative rt for chest pain, palpitations, and edema, Respiratory: Negative for shortness of breath, cough, wheezing, and pleuritic chest pain, Abdomen/GI: Negative for abdominal pain, nausea, vomiting, diarrhea, and constipation, MS/Extremity: Negative for injury and deformity, Skin: Negative for injury, rash, and discoloration, Neuro: Negative for headache, weakness, numbness, tingling, and seizure, 22:47 Back: Positive for pain at rest, pain with movement, Exam: 22:47 Constitutional: This is a well developed, well nourished patient who is awake, alert, rt and in no acute distress. Head/Face: Normocephalic, atraumatic. Chest/axilla: Normal chest wall appearance and motion. Nontender with no deformity. No lesions are appreciated. Cardiovascular: Regular rate and rhythm with a normal S1 and S2. No gallops, murmurs, or rubs. Normal PMI, no JVD. No pulse deficits. Respiratory: Lungs have equal breath sounds bilaterally, clear to auscultation and percussion. No rales, rhonchi or wheezes noted. No increased work of breathing, no retractions or nasal flaring. Abdomen/GI: Soft, non-tender, with normal bowel sounds. No distension or tympany. No guarding or rebound. No evidence of tenderness throughout. Skin: Warm, dry with normal turgor. Normal color with no rashes, no lesions, and no evidence of cellulitis. MS/ Extremity: Pulses equal, no cyanosis. Neurovascular intact. Full, normal range of motion. Neuro: Awake and alert, GCS 15, oriented to person, place, time, and situation. Cranial nerves II-XII grossly intact. Motor strength 5/5 in all extremities. Sensory grossly intact. Cerebellar exam normal. Normal gait. 22:47 Back: Tenderness to the left lower lumbar region, no midline tenderness, Vital Signs: 21:47 BP 130 / 69; Pulse 86; Resp 18 S; Temp 97.8(TE); Pulse Ox 100% on R/A; Weight 122.47 kg as6 (R); Height 5 ft. 3 in. (R); Pain 8/10; 21:47 Body Mass Index 47.83 (122.47 kg, 160.02 cm) as6 21:47 Pain Scale: Adult as6 MDM: 21:52 Patient medically screened. rt 22:47 Differential diagnosis: sciatica, Herniated disc. Data reviewed: vital signs, nurses rt notes. Test considered but Not performed: Other Details No focal neurodeficits, no red flag symptoms to suggest spinal epidural abscess, cauda equina syndrome. MRI, CT scan is not indicated.. Counseling: I had a detailed discussion with the patient and/or guardian regarding the historical points, exam findings, and any diagnostic results supporting the discharge/admit diagnosis, the need for outpatient follow up, to return to the emergency department if symptoms worsen or persist or if there are any questions or concerns that arise at home. Administered Medications: 22:34 Drug: Ketorolac IM 15 mg IM once Route: IM; Site: right deltoid; jb4 22:50 Follow up: Response: No adverse reaction; Marked relief of symptoms 4 22:34 Drug: Cyclobenzaprine PO 10 mg PO once Route: PO; jb4 22:50 Follow up: Response: No adverse reaction; Marked relief of symptoms jb4 22:34 Drug: Gabapentin PO 300 mg PO once Route: PO; jb4 22:50 Follow up: Response: No adverse reaction; Marked relief of symptoms jb4 22:50 Drug: Dexamethasone IM 10 mg IM once Route: IM; Site: left deltoid; jb4 22:51 Follow up: Response: No adverse reaction; Marked relief of symptoms jb4 Disposition Summary: 01/24/24 22:06 Discharge Ordered Notes: Location: Home rt Problem: an ongoing problem rt Symptoms: are unchanged rt Condition: Stable rt Diagnosis - Radiculopathy, lumbar region rt Followup: rt - With: Private Physician - When: 2 - 3 days - Reason: Discharge Instructions: - Discharge Summary Sheet rt - Lumbosacral Radiculopathy rt Forms: - Medication Reconciliation Form rt - Antibiotic Education rt - Prescription Opioid Use rt - Patient Portal Instructions rt - Leadership Thank You Letter rt Prescriptions: - Lidoderm 5 % Topical adhesive patch, medicated - apply 1 patch TOPICAL route once leave on most painful area for up to 12 hrs; rt 10 patch; Refills: 0, Product Selection Permitted - gabapentin 100 mg Oral capsule - take 1 capsule ORAL route every 8 hours; 21 capsule; Refills: 0, Product rt Selection Permitted - Cyclobenzaprine 5 mg Oral Tablet - take 1 tablet ORAL route 3 times per day As needed; 15 tablet; Refills: 0, rt Product Selection Permitted Signatures: Zac Cody, RN RN jb4 Bryan Oconnell RN RN as6 Oscar Pearson MD MD rt
[2024-01-24] MEDS ORDERED: CYCLOBENZAPRINE 10 MG TAB ONE (22:17)
[2024-01-24] MEDS ORDERED: GABAPENTIN 300 MG CAP ONE (22:17)
[2024-01-24] MEDS ORDERED: KETOROLAC 30 MG/ML INJ ONE (22:17)
[2024-01-24] MEDS ORDERED: dexAMETHasone 10 MG/ML VIAL ONE (22:42)
[2024-01-24 23:20] VITALS: BP 130/69; TEMP 97.8; O2SAT 100
== END 2024-01-24 22:52 | disposition home or self-care (01) ==
LOC: ER 21:35
DX: M54.16 Radiculopathy, lumbar region (principal)
CPT/HCPCS: 96372; 99284; J1100

== ENCOUNTER 2025-06-19 14:20 | Emergency (ER) | payer OTHER, SELFPAY ==
--- OUTSIDE RECORDS SUMMARY | 2025-06-19 14:23 | XMS REPORT | Continuity of Care Document ---
Author Name Unknown Address [address] [facility] [address] [place] [address] [facility] [place] Address [address] [facility]. [address] [place] [address] Care Team Providers Care Ceo And Founder Name Role Phone Paula Her Primary Care Physician CRISTAL ORTIZ Attending Clinician Unava ilable LAB90 Attending Clinician Unavailable ROMEL ROBERSON Attending Clinician Unavailable MARGARITA, [facility] Attending Clinician Unavailable MAY JAVIER Attending Clinician Unavailable SASKIA HOROWITZ Attending Clinician Unavailable DARREN ERICKSON Attending Clinician Unavailable Payers Payer Name Policy Type Policy Number Effective Date Expirati on Date Source AETJOVITA NIETO [facility] [employer] O [employer]GET[employer]OR 94 ON 9 [id number] 2023 00:00:00 Problems Condition Name Condition Details Condition Category Status Onset Date Resolution Date Last Treatment Date Treating Clinician Comments Source Body mass index 40+ - severely obese Body Mass Index 40+ - Severely Obese Problem Active 01-10 00:00: 00 [facility] Hyperinsul inism Hyperinsul inism Problem Active 01-05 00:00: 00 [facility] Hyperchole sterolemia Hyperchole sterolemia Problem Active 01-05 00:00: 00 [facility] Excessive menstruati on with irregular cycle Excessive Menstruati on with Irregular Cycle Problem Active 01-05 00:00: 00 [facility] Polycystic ovary syndrome Polycystic Ovary Syndrome Problem Active 01-05 00:00: 00 [facility] Social History Social Habit Start Date Stop Date Quantity Comments Source Sexual orientation Shelby anderson Selibertyezekiel - External Alcoholic beverage intake 2023-11-03 00:00:00 2023-11-03 00:00:00 Current drinker of alcohol (finding) Micheline Floresilbertyezekiel - External Alcohol intake 2023-11-03 00:00:00 2023-11-03 00:00:00 Current drinker of alcohol (finding) Micheline Wily - External History of Social function 2023-11-03 00:00:00 2023-11-03 00:00:00 Micheline Wily - External Sex assigned at 2000 00:00:00 2000 00:00:00 Micheline Wily - External Smoking Status Start Date Stop Date Source Never Smoker [facility] Medications Ordered Medication Name Filled Medication Name Start Date Stop Date Current Medication? Ordering Clinician Indication Dosage Frequency Signature (SIG) Comments Components Source Ozempic 0.25 mg or 0.5 mg (2 mg/3 mL) subcutaneou s pen injector Inject every week by subcutaneou s route as directed. Ozempic 0.25 mg or 0.5 mg (2 mg/3 mL) subcutaneou s pen injector Inject every week by subcutaneou s route as directed. 01-03 00:00: 00 No Q1W Ozempic 0.25 mg or 0.5 mg (2 mg/3 mL) subcutaneo us pen injector Inject every week by subcutaneo us route as directed. [facility] Amoxicillin -Pot Clavulanate 875-125 MG oral Tablet 12-24 00:00: 00 Yes [id number] 1{tbl} Take 1 tablet by mouth every 12 hours for 10 days.. Micheline Julien - Externa l Pseudoeph-B romphen-DM 30-2-10 MG/5ML oral Syrup 12-24 00:00: 00 Yes [id number] 10mL Q.25D Take 10 mL by mouth 4 times daily as needed. Micheline Mahoney Externa l TAKE ONE (1) TABLET(S) BY MOUTH EVERY EIGHT HOURS WITH FOOD NEEDED FOR PAIN. 9- 00:00: 00 No albuterol sulfate HFA 90 mcg/actuati on aerosol inhaler INHALE 2 PUFFS BY MOUTH EVERY 4 HOURS NEEDED albuterol sulfate HFA 90 mcg/actuati on aerosol inhaler INHALE 2 PUFFS BY MOUTH EVERY 4 HOURS NEEDED No albuterol sulfate HFA 90 mcg/actuat ion aerosol inhaler INHALE 2 PUFFS BY MOUTH EVERY 4 HOURS NEEDED [facility] benzonatate 200 mg capsule TAKE 1 CAPSULE BY MOUTH 3 TIMES PER DAY NEEDED benzonatate 200 mg capsule TAKE 1 CAPSULE BY MOUTH 3 TIMES PER DAY NEEDED No benzonatat e 200 mg capsule TAKE 1 CAPSULE BY MOUTH 3 TIMES PER DAY NEEDED [facility] methylpredn isolone 4 mg tablets in a dose pack DISPENSE PER PACKAGE INSERT methylpredn isolone 4 mg tablets in a dose pack DISPENSE PER PACKAGE INSERT No methylpred nisolone 4 mg tablets in a dose pack DISPENSE PER PACKAGE INSERT [facility] metformin ER 500 mg tablet,exte nded release 24 hr Take 1 tablet every day by oral route for 90 days. metformin ER 500 mg tablet,exte nded release 24 hr Take 1 tablet every day by oral route for 90 days. No 1 Q1D metformin ER 500 mg tablet,ext ended release 24 hr Take 1 tablet every day by oral route for 90 days. [facility] Vital Signs Vital Name Observation Time Observation Value Comments S ource Height 2025-01-10 00:00:00 64 [in_i] [facility] Body Weight 2025-01-10 00:00:00 268 [lb_av] [facility] BP Diastolic 2025-01-10 00:00:00 75 mm[Hg] [facility] BP Systolic 2025-01-10 00:00:00 122 mm[Hg] [facility] BMI (Body Mass Index) 2025-01-10 00:00:00 46 [facility]2 [facility] Diastolic 2025-01-05 00:00:00 93 mm[Hg] [facility] BP Systolic 2025-01-05 00:00:00 125 mm[Hg] [facility] Body Weight 2025-01-05 00:00:00 263 [lb_av] [facility] Height 2025-01-05 00:00:00 64 [in_i] [facility] BMI (Body Mass Index) 2025-01-05 00:00:00 45.1 kg/m2 [facility] Body Weight 2024-11-09 00:00:00 277 [lb_av] [facility] Height 2024-11-09 00:00:00 64 [in_i] [facility] BMI (Body Mass Index) 2024-11-09 00:00:00 47.5 kg/m2 [facility] Diastolic blood pressure 2023-11-03 19:33:00 70 mm[Hg] Micheline Seybo ld - External Heart rate 2023-11-03 19:33:00 71 /min Kelse y Seybold - External Body temperature 2023-11-03 19:33:00 36.5 Dang Micheline Seybold - External Respiratory rate 2023-11-03 19:33:00 18 /min Micheline Seybold - External Body height 2023-11-03 19:33:00 162.6 cm Beatriz ey Seybold - External Body weight 2023-11-03 19:33:00 124.739 kg Beatriz ey Seybold - External BMI 2023-11-03 19:33:00 47.20 kg/m2 Beatriz ey Seybold - External Systolic blood pressure 2023-11-03 19:33:00 132 mm[Hg] Micheline Seybo ld - External Procedures Procedure Date / Time Performed Performing Clinicia n Source US TRANSVAGINAL 2024-11-25 00:00:00 [facility] Plan of Care Planned Activity Planned Date Details Comments Source Goal Plan of Care Note [code = 30411-5] Goal Plan of Care Note [code = 97883-3] Goal Plan of Care Note [code = 69874-1] Goal Plan of Care Note [code = 46659-1] Encounters Start Date/Time End Date/Time Encounter Type Admission Type Attending Clinicians Care Facility Care Department Encounter ID Source 2025-01-18 00:00:00 2025-01-18 00:00:00 KATHERINE Rutherford: [address], [facility] [address], [place] [address] , Ph. Formerly [facility] - GC_GCBZW_Kristina Cao* [id number] [facility] 2025-01-10 00:00:00 2025-01-10 00:00:00 KATHERINE Rutherford: [address], [address], [place] [address] , Ph. Formerly [facility] - GC_GCBZW_Nj dorina Nash* [id number] [facility] 2025-01-05 00:00:00 2025-01-05 00:00:00 KATHERINE Rutherford: [address], [address], [place] [id number] , Ph. Formerly [facility] - GC_GCBZW_Nj dorina Nash* [id number] [facility] 2024-12-09 00:00:00 2024-12-09 00:00:00 KARTHIKEYAN Eden: [address], [address], [place] [address] , Ph. Formerly [facility] - GC_GCBZW_Nj dorina Nash* [id number] [facility] 2024-11-25 00:00:00 2024-11-25 00:00:00 Malaika Miranda MD: [address], [address], [place] [id number] , Ph. Formerly [facility] - GC_GCBZW_Nj dorina Nash* [id number] [facility] 2024-11-09 00:00:00 2024-11-09 00:00:00 KARTHIKEYAN Eden: [address], [address], [place] [id number] , Ph. Formerly [facility] - GC_GCBZW_Nj dorina Nash* [id number] [facility] 2024-08-20 00:00:00 2024-08-20 00:00:00 Outpatient CRISTAL ORTIZ [id number] Micheline Julien 2024-07-23 00:00:00 2024-07-23 00:00:00 Outpatient CRISTAL ORTIZ [id number] Micheline Julien 2024-04-20 00:00:00 2024-04-20 00:00:00 Outpatient CRISTAL ORTIZ MICHELINE BRASHER [id number] [facility] 2024-03-12 00:00:00 2024-03-12 00:00:00 Outpatient CRISTAL ORTIZ MICHELINE MICHELINE [id number] Micheline Seybold 2024-02-17 00:00:00 2024-02-17 00:00:00 Outpatient CRISTAL ORTIZ MICHELINE BRASHER [id number] [facility] 2024-02-11 15:15:00 2024-02-11 15:15:00 Outpatient GAETANO MICHELINE BRASHER [id number] Micheline Seybold 2024-02-11 14:30:00 2024-02-11 14:30:00 Outpatient CRISTAL ORTIZ MICHELINE BRASHER [id number] [facility] 2024-02-11 00:00:00 2024-02-11 00:00:00 Outpatient MICHELINE BRASHER [id number] [facility] 2024-02-11 00:00:00 2024-02-11 00:00:00 Outpatient MICHELINE BRASHER [id number] Micheline Seybold 2023-12-30 16:00:00 2023-12-30 16:00:00 Outpatient MICHELINE BRASHER [id number] Micheline Seybold 2023-12-25 16:00:00 2023-12-25 16:00:00 Outpatient ROMEL ROBERSON [id number] Micheline Seybold 2023-12-08 00:00:00 2023-12-08 00:00:00 Outpatient CONFERENCE, [facility] MICHELINE BRASHER [id number] Micheline Seybold 2023-12-04 15:30:00 2023-12-04 15:30:00 Outpatient MAY JAVIER [id number] Micheline Seybold 2023-11-28 00:00:00 2023-11-28 00:00:00 Outpatient SASKIA HOROWITZ [id number] Micheline Seybold 2023-11-27 08:10:00 2023-11-27 08:10:00 Outpatient CONFERENCE, [facility] MICHELINE BRASHER [id number] Micheline Julien 2023-11-27 00:00:00 2023-11-27 00:00:00 Outpatient [facility]FERENCE, [facility] MICHELINE BRASHER [id number] Micheline Floresezeikel 2023-11-27 00:00:00 2023-11-27 00:00:00 Outpatient DARREN ERICKSON [id number] Micheline Floresezekiel 2023-11-26 10:45:00 2023-11-26 10:45:00 Outpatient MICHELINE BRASHER [id number] [facility] 2023-11-24 12:20:00 2023-11-24 12:20:00 Outpatient LAB90 MICHELINE BRASHER [id number] [facility] 2023-11-05 11:15:00 2023-11-05 11:15:00 Outpatient [facility], [facility] MICHELINE BRASHER [id number] [facility] 2023-11-03 13:45:00 2023-11-03 13:45:00 Outpatient SASKIA HOROWITZ MICHELINE MICHELINE [id number] [facility] 2022-10-26 09:38:31 2022-10-26 09:38:31 Outpatient SFA SFA [id number] Guillermo Tan 2022-10-17 15:11:27 2022-10-17 15:11:27 Outpatient SFA SFA [id number] Guillermo Tan 2022-10-16 15:35:33 2022-10-16 15:35:33 Outpatient SFA SFA [id number] Guillermo Tan 2022-07-22 11:28:20 2022-07-22 11:28:20 Outpatient SFA SFA [id number] Guillermo Tan 2022-06-11 00:00:00 2022-06-11 00:00:00 Outpatient Visit [id number] Results Test Description Test Time Test Comments Results Result Co mments Source [facility] Pathology biopsy [id number] 00:00:00Clinical InformationPathologistA SourceA Gross DescriptionA Diagnosis[facility] test, [id number] 15:01:38* Test Item Value Reference Range Interpretation Comme nts HCG (test code = HCG) negative [facility] Medical[facility]lamydia trachomatis and Neisseria gonorrhoeae rRNA panel - Specimen by JEREL with probe [id number] 00:00:00* Test Item Value Reference Range Interpretation Comme nts aptima combo 2 swab (CT) (te st code = aptima combo 2 swab (CT)) CT NEG negative aptima combo 2 swab (GC) (te st code = aptima combo 2 swab (GC)) GC NEG negative [facility] W Auto Differential panel - [id number] 00:00:00* Test Item Value Reference Range Interpretation Comme nts WBC (test code = WBC) 10.0 10 3.7-12.0 RBC (test code = RBC) 4.75 10 3.60-5.50 HGB (test code = HGB) 10.0 g/dL 11.5-15.6 L HCT (test code = HCT) 32.4 % 34.5-46.5 L MCV (test code = MCV) 68.3 um 80.0-102.0 L MCH (test code = MCH) 21.0 pg 25.0-34.1 L MCHC (test code = MCHC) 30.7 g/dL 29.0-35.0 RDW (test code = RDW) 17.7 % 10.9-16.9 H plt (test code = plt) 470 10 136-392 H MPV (test code = MPV) 8.6 um 7.4-11.1 gran % (test code = gran %) 76.2 % 36.0-78.0 lymph % (test code = lymph %) 17.8 % 12.0-48.0 mono % (test code = mono %) 5.2 % 0.0-13.0 eos % (test code = eos %) 0 % 0-8 baso % (test code = baso %) 1 % 0-2 gran # (test code = gran #) 7.6 10 1.2-6.8 H lymph # (test code = lymph #) 1.8 10 0.7-3.2 mono # (test code = mono #) 0.5 10 0.1-0.8 eos # (test code = eos #) 0.0 10 0.0-0.4 baso # (test code = baso #) 0.1 10 0.0-0.2 RBC morphology (test code = RBC morphology) ABNORMAL platelet morphology (test code = platelet morphology) NORMAL platelet estimate (test code = platelet estimate) SLIGHT INCREASE anisocytosis (test code = anisocytosis) SLIGHT microcyte (test code = microcyte) FEW [facility] test, [id number] 15:18:18* Test Item Value Reference Range Interpretation Comme nts HCG (test code = HCG) negative [facility] [id number]-Csydjvlthtqjkryapqd [Mass/volume] in Serum or [id number] 00:00:00* Test Item Value Reference Range Interpretation Comme nts 17-oh progesterone lcms (kuldeep t code = 17-oh progesterone lcms) 15 NG/dL [facility] MedicalInsulin [Units/volume] in Serum or [id number] 00:00:00* Test Item Value Reference Range Interpretation Comme nts insulin (test code = insulin) 30.8 uIU/mL 2.6-24.9 H [facility] MedicalTestosterone free and total panel [Mass/volume] - Serum or Plasma 2024-11-23 00:00:00* Test Item Value Reference Range Interpretation Comme nts free testosterone (test code = free testosterone) 0.94 NG/dL 0.12-0.64 H sex hormone binding globulin (test code = sex hormone binding globulin) 17.80 nmol/L 10.00-57.00 testosterone (test code = testosterone) 38.3 NG/dL 8.4-48.1 [facility] MedicalThyrotropin [Units/volume] in Serum or [id number] 00:00:00* Test Item Value Reference Range Interpretation Comme nts TSH (test code = TSH) 2.590 uIU/mL 0.500-4.530 [facility] MedicalDehydroepiandrosterone sulfate (DHEA-S) [Mass/volume] in Serum or [id number] 00:00:00* Test Item Value Reference Range Interpretation Comme nts DHEA-S (test code = DHEA-S) 219.0 ug/dL 98.8-340.0 [facility] MedicalGlucose [Mass/volume] in Serum or [id number] 00:00:00* Test Item Value Reference Range Interpretation Comme nts glucose (test code = glucose) 92 mg/dL 70-99 [facility] MedicalLipid 1996 panel - Serum or [id number] 00:00:00* Test Item Value Reference Range Interpretation Comme nts cholesterol (test code = cholesterol) 157 mg/dL 0-200 triglycerides (test code = triglycerides) 81 mg/dL 10-150 HDL cholesterol (test code = HDL cholesterol) 43 mg/dL >50 L HDL risk factor (test code = HDL risk factor) 3.7 calc. VLDL cholesterol (test code = VLDL cholesterol) 16 calc dldl (test code = dldl) 105 mg/dL <100 H [facility] Medicalpregnancy test, [id number] 15:35:16* Test Item Value Reference Range Interpretation Comme nts HCG (test code = HCG) negative [facility] MedicalBREAST ULTRASOUND [id number] 13:19:42 Name: Ariadna : 2000 Sex: F - BREAST ULTRASOUND RIGHTCOMPLETE ULTRASOUND OF RIGHT BREAST AND AXILLA: 02/11/2023LINICAL: Followup to previous exam right breast.Comparison is made to exam dated 11/26/2022 ultrasound - [facility]. Color flow and r eal-time ultrasound of the right breast four quadrants, retroareolar, and axilla regions and clinical breast exam performed. Corcoran scale images of the real-time examination were reviewed. No significant abnormalities were seen sonographically in the right breast or the right axilla. Clinical breast exam unremarkable. IMPRESSION: NEGATIVE There is no sonographic evidence of malignancy. Follow-up with ACR/ACS guidelines. Maryann Livingston M.D. dm/:02/11/2023 13:19:42 Entry: - 02/12/2023 08:25:31Imaging Technologist: Natasha WADE, [facility]letter sent: BIRADS 1-2 Normal Ultrasound BI-RADS: 1 NegativeBREAST ULTRASOUND [id number] 07:52:46 Name: Ariadna : 2000 Sex: F - BREAST [...] in the right breast is benign. A follow- up target ultrasound in 2 months is recommended. (01/26/2023) Maryann Livingston M.D. dm/:11/27/2022 07:52:46 Order Analyst: Kennedi WADE, [facility]FWUltrasound BI-RADS: 2 BenignPAP TEST, THINPREP, [id number] 16:13:32* Test Item Value Reference Range Interpretation Comme nts SOURCE: (test code = 8001) Cervical/Endoce rvical SLIDES: (test code = 8011) 1 LMP: (test code = 8021) 10/15/2022 SPECIMEN ADEQUACY: (test code = 94736) (NOTE) Satisfactory for evaluation. Endocervical cells/transformation zone component present. INTERPRETATION: (test code = 39102) NILM/NO EPITH. ABNORMALITY;SEE BELOW --- - NEGATIVE FOR INTRAEPITHELIAL LESION OR MALIGNANCY (NILM) ---- NATIONAL SALES REPRESENTATIVE : (test code = 8101) [facility] LOCATION: (test code = 87166) (NOTE) Specimens proces sed and interpreted at [facility], [address] [place] [address], , CLIA: [id number] CPT: (test code = 8140) (NOTE) 07891 UNLESS OTH ERWISE INDICATED, COMPUTER AIDED AND NATIONAL SALES REPRESENTATIVE SCREENING PERFORMED. The Pap test is a screening test with an inherent, but low probability of error. Your patient should be reminded to consult you immediately if she experiences any suspicious signs or symptoms, regardless of her Pap test result. An alternate report format containing images or consolidated prior Pap history is available as applicable. [facility] has important pathology staff changes effective 11/13/2022. New pathology staff will provide uninterrupted, excellent patient care and clinical consultation. See URL: [email or web address]/[email or web address] [email or web address]. UNLESS OTHERWISE INDICATED, ALL TESTING PERFORMED AT [facility] [address] [place] [address] CLIA: [id number], CAP: [id number] VAGINAL PATHOGENS DNA [id number] 13:59:21* Test Item Value Reference Range Interpretation Comme nts PARIS SPECIES (test code = ) NEGATIVE NEGATIVE G. VAGINALIS (test code = ) NEGATIVE NEGATIVE T. VAGINALIS (test code = ) NEGATIVE NEGATIVE Note: The BD Local[employer]anya irm VPIII Microbial Identification Testis a DNA probe test intended for use in the detectionand identification of [place] species, Gardnerellavaginalis and Trichomonas vaginalis nucleic acid. [facility] has important pathology staff changes effective 11/13/2022. New pathology staff will provide uninterrupted, excellent patient care and clinical consultation. See URL: [email or web address]/pathology-[email or web address] am. UNLESS OTHERWISE INDICATED, ALL TESTING PERFORMED AT [facility] [address] [place], [place] CLIA: [id number], CAP: [id number] Notes Date/Time Note Provider Source 2023-11-03 13:28:11 Chief Complaint Patient presents with Breast Problem Jazmin Quiñones CMA II [facility]
[2025-06-19] MEDS ORDERED: KETOROLAC 30 MG/ML INJ ONE (15:58)
[2025-06-19] MEDS ORDERED: HYDROCODONE/APAP 7.5/325 MG TAB ONE (15:58)
[2025-06-19] MEDS ORDERED: BACLOFEN 10 MG TAB ONE (16:05)
[2025-06-19 16:26] LABS: Sqamous Epithelial <5 /HPF (None Seen); Urine Culture Reflex Order NOT NEEDED; Urine Microscopic Reflex YN ORDER UMIC; Urine WBC Clump Rare /HPF (None Seen); Urine Yeast (Budding) Trace /HPF (None Seen)
--- NOTE | 2025-06-19 16:43 | EDPHYS ---
Physician Documentation [facility] Name: Ariadna Castle Age: 24 yrs Sex: Female : 2000 Arrival Date: 06/19/2025 Time: 14:20 Bed 19 Private MD: ED Physician Rayshawn Leo HPI: 06/19 15:15 This 24 yrs old Female presents to ER via Ambulatory with complaints of Low cp Back Pain - PAIN SHOOTING DOWN LEFT LEG. 15:15 The patient presents with pain that is acute, with no known mechanism of injury. cp 15:15 The symptoms are located in the left low back. The pain radiates to the left leg. cp Onset: The symptoms/episode began/occurred 5 day(s) ago. Associated signs and symptoms: Pertinent negatives: abdominal pain, dysuria, fever, hematuria, incontinence, numbness, urinary retention, weakness. Severity of symptoms: in the emergency department the symptoms are unchanged, despite home interventions. 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 - Infectious Disease History:: Denies. - Social history:: Smoking status: Patient denies any tobacco usage or history of. ROS: 15:20 Constitutional: Negative for body aches, chills, fever, poor PO intake, cp 15:20 Cardiovascular: Negative for chest pain, edema, palpitations, cp 15:20 Respiratory: Negative for cough, shortness of breath, wheezing, 15:20 Abdomen/GI: Negative for abdominal pain, vomiting, diarrhea, constipation, bowel incontinence, 15:20 Back: Positive for pain at rest, pain with movement, of the left low back, 15:20 : Negative for urinary symptoms, difficulty urinating, bladder incontinence, 15:20 Neuro: Negative for altered mental status, headache, numbness, weakness, 15:20 All other systems are negative, Exam: 15:20 Head/Face: Normocephalic, atraumatic. cp 15:20 Constitutional: The patient appears in no acute distress, alert, awake, non-toxic, well developed, well nourished, obese, uncomfortable, 15:20 Eyes: Periorbital structures: appear normal, Conjunctiva: normal, no exudate, no injection, Sclera: no appreciated abnormality, Lids and lashes: appear normal, bilaterally, 15:20 ENT: External ear(s): are unremarkable, Nose: is normal, Mouth: Lips: moist, Oral mucosa: moist, Posterior pharynx: Airway: no evidence of obstruction, patent, 15:20 Chest/axilla: Inspection: normal, 15:20 Cardiovascular: Rate: normal, 15:20 Respiratory: the patient does not display signs of respiratory distress, Respirations: normal, no use of accessory muscles, no retractions, labored breathing, is not present, Breath sounds: are clear throughout, no decreased breath sounds, no stridor, no wheezing, 15:20 Abdomen/GI: Inspection: obese Palpation: abdomen is soft and non-tender, in all quadrants, 15:20 Back: pain, that is moderate, of the left low back, ROM is painful, with all movement, 15:20 Neuro: Motor: moves all fours, strength is normal, Gait: is steady, Vital Signs: 14:59 BP 125 / 67; Pulse 71; Resp 16; Temp 98; Pulse Ox 100% ; Weight 127.01 kg; Height 5 ft. db 3 in. ; 16:00 BP 119 / 62; Pulse 63; Resp 15; Pulse Ox 100% ; me1 16:50 BP 123 / 80; Pulse 68; Resp 16; Temp 98; Pulse Ox 100% ; me1 16:54 Pain 4/10; me1 14:59 Body Mass Index 49.60 (127.01 kg, 160.02 cm) db 16:54 Pain Scale: Adult me1 MDM: 14:59 Medical Screening Exam initiated cp 16:41 Data reviewed: vital signs, nurses notes, lab test result(s), and as a result, I will cp discharge patient. 16:41 Differential diagnosis: sciatica, Herniated disc UTI, cauda equina, spinal stenosis. I cp considered the following discharge prescriptions or medication management in the emergency department Medications were administered in the Emergency Department. See MAR. Care significantly affected by the following chronic conditions: Obesity. Counseling: I had a detailed discussion with the patient and/or guardian regarding the historical points, exam findings, and any diagnostic results supporting the discharge/admit diagnosis, lab results, the need for outpatient follow up, a family practitioner, to return to the emergency department if symptoms worsen or persist or if there are any questions or concerns that arise at home. Response to treatment: the patient's symptoms have mildly improved after treatment. 06/19 15:03 Order name: UA Rfx Adithya Cult if indicated; Complete Time: 16:29 cp 06/19 16:29 Interpretation: Reviewed. cp 06/19 15:03 Order name: Test, Urine; Complete Time: 16:22 cp 06/19 16:23 Interpretation: Reviewed. cp Administered Medications: 16:02 Drug: Hydrocodone-Acetaminophen PO (7.5 mg-325 mg) 1 tabs PO once; RASS on ADMIN: me1 Combtv4, Very Agttd3, Agttd2, Rstlss1, AlertClm0, Drwsy-1, Lt Sdtn-2, Mod Sdtn-3, Dp Sdtn-4, UnArsble-5 Route: PO; 16:54 Follow up: Response: No adverse reaction; Pain is decreased me1 16:31 Drug: Ketorolac IM 60 mg IM once; if test negative Route: IM; Site: left me1 gluteus; 16:54 Follow up: Pain 4/10 Adult; Response: No adverse reaction; Pain is decreased me1 16:31 Drug: Baclofen PO 10 mg PO once Route: PO; me1 16:54 Follow up: Response: No adverse reaction; Pain is decreased me1 16:31 Drug: Dexamethasone IM 10 mg IM once; if test negative Route: IM; Site: right me1 deltoid; 16:54 Follow up: Response: No adverse reaction; Pain is decreased me1 Disposition: 06/20 03:10 Chart complete. cp Disposition Summary: 06/19/25 16:42 Discharge Ordered Notes: Location: Home cp Problem: an acute exacerbation cp Symptoms: have improved cp Condition: Stable cp Diagnosis - Lumbago with sciatica, left side cp Followup: cp - With: Private Physician - When: 2 - 3 days - Reason: Recheck today's complaints Discharge Instructions: - Discharge Summary Sheet cp - Sciatica cp - Back Exercises cp Forms: - Medication Reconciliation Form cp - Antibiotic Education cp - Prescription Opioid Use cp - Patient Portal Instructions cp - Leadership Thank You Letter cp - Work release form me1 Prescriptions: - Diclofenac Sodium 75 mg Oral Tablet Sustained Release - take 1 tablet ORAL route 2 times per day; 30 tablet; Refills: 0, Product cp Selection Permitted - Medrol (Gus) 4 mg Oral Tablets, Dose Pack - take 1 tablet ORAL route as directed - follow package instructions; 1 packet; cp Refills: 0, Product Selection Permitted - methocarbamol 500 mg Oral tablet - take 2 tablets ORAL route every 8 hours; 60 tablet; Refills: 0, Product cp Selection Permitted Signatures: Dispatcher [employer] EDMS Rayshawn Montalvo PA-C PA-C cp Benton, Danielle, RN RN db Jeanette Murdock, LEDY RN me1 Corrections: (The following items were deleted from the chart) 06/19 15:03 15:03 UA Rfx Adithya Cult if indicated+U.LAB.BRZ ordered. EDMS EDMS 15:03 15:03 Test, Urine+UC.LAB.BRZ ordered. EDMS EDMS
--- NOTE | 2025-06-19 16:43 | ER ---
Nurse's Notes [facility] Name: Ariadna Castle Age: 24 yrs Sex: Female : 2000 Arrival Date: 06/19/2025 Time: 14:20 Bed 19 Private MD: Diagnosis: Lumbago with sciatica, left side Presentation: 06/19 14:59 Chief complaint: Patient states: LOWER LEFT BACK PAIN X 5 DAYS. DENIES RECENT INJURY. db HX HERNIATED DISC. Coronavirus screen: Client denies travel out of the [place] in the last 14 days. At this time, the client does not indicate any symptoms associated with coronavirus-19. Ebola Screen: Patient negative for fever greater than or equal to 101.5 degrees Fahrenheit, and additional compatible Ebola Virus Disease symptoms Patient denies exposure to infectious person. Patient denies travel to an Ebola-affected area in the 21 days before illness onset. No symptoms or risks identified at this time. Initial Sepsis Screen: Does the patient meet any 2 criteria? No. Patient's initial sepsis screen is negative. Does the patient have a suspected source of infection? No. Patient's initial sepsis screen is negative. Risk Assessment: Do you want to hurt yourself or someone else? Patient reports no desire to harm self or others. Onset of symptoms was June 19, 2025. 14:59 Method Of Arrival: Ambulatory db 14:59 Acuity: MICHAEL 4 db Triage Assessment: 15:02 General: Appears in no apparent distress. comfortable, Behavior is calm, cooperative. db Pain: Complains of pain in back. Neuro: Level of Consciousness is awake, alert, obeys commands, Oriented to person, place, time, situation. Respiratory: Airway is patent Respiratory effort is even, unlabored, Respiratory pattern is regular, symmetrical. Musculoskeletal: Reports pain in back. 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 - Infectious Disease History:: Denies. - Social history:: Smoking status: Patient denies any tobacco usage or history of. Screenin:40 [facility] ED Fall Risk Assessment (Adult) History of falling in the last 3 months, me1 including since admission No falls in past 3 months (0 pts) Confusion or Disorientation No (0 pts) Intoxicated or Sedated No (0 pts) Impaired Gait Yes (1 pt) Mobility Assist Device Used No (0 pt) Altered Elimination No (0 pt) Score/Fall Risk Level 0 - 2 = Low Risk Maintained a safe environment, Provided non-skid footwear, Hourly rounding (assess needs \T\ fall precautionary measures) done. Abuse screen: Denies threats or abuse. Nutritional screening: No deficits noted. Tuberculosis screening: No symptoms or risk factors identified. Assessment: 15:40 General: Appears uncomfortable, obese, well groomed, well developed, Behavior is calm, me1 cooperative, appropriate for age, Reports LOWER LEFT BACK PAIN X 5 DAYS. DENIES RECENT INJURY. HX HERNIATED DISC. Pain: Complains of pain in left low back Pain radiates to left gluteus holly and left hamstring Pain currently is 8 out of 10 on a pain scale. Quality of pain is described as burning, sharp, shooting, Pain began 5 days ago Is continuous. Neuro: Level of Consciousness is awake, alert, obeys commands, Oriented to person, place, time, situation, Appropriate for age. Cardiovascular: Patient's skin is warm and dry. Respiratory: Airway is patent Trachea midline Respiratory effort is even, unlabored, Respiratory pattern is regular, symmetrical. GI: No signs and/or symptoms were reported involving the gastrointestinal system. : No signs and/or symptoms were reported regarding the genitourinary system. EENT: No signs and/or symptoms were reported regarding the EENT system. Derm: Skin is intact, is healthy with good turgor, Skin is normal. Musculoskeletal: Reports pain in left low back, left gluteus holly and left hamstring since 5 days ago. Vital Signs: 14:59 BP 125 / 67; Pulse 71; Resp 16; Temp 98; Pulse Ox 100% ; Weight 127.01 kg; Height 5 ft. db 3 in. ; 16:00 BP 119 / 62; Pulse 63; Resp 15; Pulse Ox 100% ; me1 16:50 BP 123 / 80; Pulse 68; Resp 16; Temp 98; Pulse Ox 100% ; me1 16:54 Pain 4/10; me1 14:59 Body Mass Index 49.60 (127.01 kg, 160.02 cm) db 16:54 Pain Scale: Adult me1 ED Course: 14:24 Patient arrived in ED. sj2 14:26 Rayshawn Montalvo PA-C is PHCP. cp 14:26 Rayshawn Leo MD is Attending Physician. cp 15:01 Triage completed. db 15:01 Arm band placed on right wrist. Patient placed in waiting room. db 15:33 Jeanette Murdock, RN is Primary Nurse. me1 15:40 Patient has correct armband on for positive identification. Bed in low position. Call me1 light in reach. Side rails up X2. Provided Education on: POC. Verbalized understanding.. Client placed on continuous cardiac and pulse oximetry monitoring. NIBP monitoring applied. Pulse ox on. NIBP on. 15:40 No provider procedures requiring assistance completed. Patient did not have IV access me1 during this emergency room visit. 15:54 Urine collected: clean catch specimen, clear. me1 Administered Medications: 16:02 Drug: Hydrocodone-Acetaminophen PO (7.5 mg-325 mg) 1 tabs PO once; RASS on ADMIN: me1 Combtv4, Very Agttd3, Agttd2, Rstlss1, AlertClm0, Drwsy-1, Lt Sdtn-2, Mod Sdtn-3, Dp Sdtn-4, UnArsble-5 Route: PO; 16:54 Follow up: Response: No adverse reaction; Pain is decreased me1 16:31 Drug: Ketorolac IM 60 mg IM once; if test negative Route: IM; Site: left me1 gluteus; 16:54 Follow up: Pain 4/10 Adult; Response: No adverse reaction; Pain is decreased me1 16:31 Drug: Baclofen PO 10 mg PO once Route: PO; me1 16:54 Follow up: Response: No adverse reaction; Pain is decreased me1 16:31 Drug: Dexamethasone IM 10 mg IM once; if test negative Route: IM; Site: right me1 deltoid; 16:54 Follow up: Response: No adverse reaction; Pain is decreased me1 Medication: 15:40 VIS not applicable for this client. me1 Outcome: 16:42 Discharge ordered by . cp 17:06 Discharged to home via wheelchair, with family, me1 17:06 Condition: stable 17:06 Discharge instructions given to patient, family, Instructed on discharge instructions, follow up and referral plans. medication usage, Demonstrated understanding of instructions, follow-up care, medications, Prescriptions given X 3, 17:06 Patient left the ED. me1 Signatures: Rayshawn Montalvo PA-C PA-C cp Benton, Danielle, RN RN db Jeanette Murdock RN RN me1 Agustina Jones sj2 Corrections: (The following items were deleted from the chart) 15:02 14:59 Pulse 71bpm; Resp 16bpm; Pulse Ox 100%; Temp 98F; 127.01 kg; Height 5 ft. 3 in.; db BMI: 49.6; db 16:51 14:59 Chief complaint: Patient states: LOWER LEFT BACK PAIN X 5 DAYS. DENIES RECENT me1 INJURY. HX HERNIATED DISC db
[2025-06-19 17:40] VITALS: TEMP 98; O2SAT 100
[2025-06-19 17:44] VITALS: BP 123/80
== END 2025-06-19 17:06 | disposition home or self-care (01) ==
LOC: ER 14:20
DX: M54.42 Lumbago with sciatica, left side (principal)
CPT/HCPCS: 81001; 81025; 96372; 99284; J1100; J1885